=== PATIENT | male | born 1990 | race Two or more races ===

== ENCOUNTER 2024-10-29 09:40 | Inpatient (IN) | payer MEDICAID, OTHER ==
[~2024-10-29] VITALS: Ht 175.3 cm; Wt 107.5 kg
[2024-10-29] MEDS: LORazepam 2MG/ML-1ML VIAL IV ONE (10:08)
[2024-10-29] MEDS: HALOPERIDOL LACTATE 5 MG/ML INJ VIAL IM ONE (10:08)
[2024-10-29] MEDS: diphenhdrAMINE HCL 50 MG/1 ML VL IV ONE (10:08)
[2024-10-29 10:28] LABS: Basophils # (auto) 0.1 10 ^3/uL (0-0.2); Basophils % (auto) 0.8 % (0.0-2.0); Eosinophils # (auto) 0.1 10 ^3/uL (0-0.8); Eosinophils % (auto) 1.3 % (0.0-7.0); Hematocrit 44.7 % (41.0-53.0); Hemoglobin 15.2 g/dL (13.5-17.5); Lymphocytes # (auto) 2.2 10 ^3/uL (0.4-5.4); Lymphocytes % (auto) 26.5 % (10.0-50.0); Mean Corpuscular Hemoglobin 29.5 pg (28.0-32.0); Mean Corpuscular Hgb Conc. 33.9 g/dL (32.0-36.0); Monocytes # (auto) 0.8 10 ^3/uL (0-1.3); Monocytes % (auto) 9.5 % (0.0-12.0); Neutrophils # (auto) 5.2 10 ^3/uL (1.6-8.6); Neutrophils % (auto) 61.9 % (37.0-80.0); Nucleated Red Blood Cells % 0.1 %; Platelet Count (auto) 172 10^3/uL (140-450); Red Blood Cells 5.14 10^6/uL (4.5-5.90); Red Cell Distribution Width 13.5 % (11.8-14.3); White Blood Cell 8.4 10^3/uL (4.4-10.8)
[2024-10-29 10:36] LABS: Chloride 104 mmol/L (98-107); Potassium 3.5 mmol/L (3.5-5.1); Sodium 139 mmol/L (136-145)
[2024-10-29 10:37] LABS: Anion Gap 9 (5-15); Calcium 9.5 mg/dL (8.7-10.4); Carbon Dioxide 26 mmol/L (20-31)
--- NOTE | 2024-10-29 10:41 | ED.PDOC ---
Altered Mental Status HPI Comments 46M BIBA w/ prior Hx of Schizophrenic and Bipolar which all may be associated to the c/c of Altered. EMS report that the nursing home that the pt lives at called 911 who sent a justine who called for an EMS. EMS stated that the pt is not acting normal, erratic behavior, non-violent and is trying to spit to staff. EMS state "Possibly high on something". Denies chills, fever, N/V/D, SOB, CP or other associated symptom's, modifiers, or recent injuries or sick contact at this time. Chief Complaint: ALOC Time Seen by MD: 09:45 Primary Care Provider: UNKNOWN Reviewed Notes: Nurses Notes, Comfort Advisor Notes, Medications, Allergies Allergies: Coded Allergies: NO KNOWN ALLERGIES (Unverified , 10/29/24) Information Source: Emergency Med Personnel Mode of Arrival: EMS Severity: Moderate Timing: Hours Duration: Since onset, Hours Prehospital treatment: Restraints Quality: Change in Behavior Recent: None History of: None Associated Signs and Symptoms: None Past Medical History PAST MEDICAL HISTORY: Schizophrenia Past Medical History (Other): Bipolar Surgical History: Denies all surgeries Family History Family History: Reviewed,noncontributory to illness, Unknown Social History Smoker: Non-Smoker Alcohol: Denies ETOH Use Drugs: Unknown Lives In: Home Unable to Obtain due to: Altered Mental Status All Other Systems: Reviewed and Negative Physical Exam General Appearance: Moderate Distress, Normal HEENT: Normal ENT Inspection, Pharynx Normal, TMs Normal Neck: Full Range of Motion, Non-Tender, Normal, Normal Inspection Respiratory: Chest Non-Tender, Lungs Clear, No Accessory Muscle Use, No Respiratory Distress, Normal Breath Sounds Cardiovascular: No Edema, No JVD, No Murmur, No Gallop, Normal Peripheral Pulses, Regular Rate/Rhythm Breast Exam: Deferred Gastrointestinal: No Organomegaly, Non Tender, No Pulsatile Mass, Normal Bowel Sounds, Soft Genitalia: Deferred Pelvic: Deferred Rectal: Deferred Extremities: No calf tenderness, Normal capillary refill, Normal range of motion, Non-tender, No pedal edema Musculoskeletal : Apperance: Normal Neurologic: Disoriented, No Sensory Deficits, R/L Numbness Cerebellar Function: NOT DONE Reflexes: NOT DONE Skin: Dry, Normal Color, Warm Peripheral Pulses: 3+ Radial (R), 3+ Radial (L) Lymphatic: No Adenopathy Was a procedure done? Was a procedure done?: No Differential Diagnosis (ALOC) Differential Diagnosis: Drug Overdose, ETOH Intoxication X-Ray, Labs, Meds, VS Vital Signs Date Time Temp Pulse Resp B/P (MAP) Pulse Ox O2 Delivery O2 Flow Rate FiO2 10/29/24 09:46 98.9 100 24 137/80 (99) 100 Lab Test 10/29/24 10:18 Range/Units White Blood Count 8.4 4.4-10.8 10^3/uL Red Blood Count 5.14 4.5-5.90 10^6/uL Hemoglobin 15.2 13.5-17.5 g/dL Hematocrit 44.7 41.0-53.0 % Mean Corpuscular Volume 87.0 80.0-100.0 fL Mean Corpuscular Hemoglobin 29.5 28.0-32.0 pg Mean Corpuscular Hemoglobin Concent 33.9 32.0-36.0 g/dL Red Cell Distribution Width 13.5 11.8-14.3 % Platelet Count 172 140-450 10^3/uL Mean Platelet Volume 7.6 6.9-10.8 fL Neutrophils (%) (Auto) 61.9 37.0-80.0 % Lymphocytes (%) (Auto) 26.5 10.0-50.0 % Monocytes (%) (Auto) 9.5 0.0-12.0 % Eosinophils (%) (Auto) 1.3 0.0-7.0 % Basophils (%) (Auto) 0.8 0.0-2.0 % Neutrophils # (Auto) 5.2 1.6-8.6 10 ^3/uL Lymphocytes # (Auto) 2.2 0.4-5.4 10 ^3/uL Monocytes # (Auto) 0.8 0-1.3 10 ^3/uL Eosinophils # (Auto) 0.1 0-0.8 10 ^3/uL Basophils # (Auto) 0.1 0-0.2 10 ^3/uL Nucleated Red Blood Cells 0.1 % Sodium Level 139 136-145 mmol/L Potassium Level 3.5 3.5-5.1 mmol/L Chloride Level 104 98-107 mmol/L Carbon Dioxide Level 26 20-31 mmol/L Anion Gap 9 5-15 Blood Urea Nitrogen 8 L 9-23 mg/dL Creatinine 1.09 0.700-1.30 mg/dL Glomerular Filtration Rate Calc 85 >90 mL/min BUN/Creatinine Ratio 7.3 L 10.0-20.0 Serum Glucose 98 74-106 mg/dL Calcium Level 9.5 8.7-10.4 mg/dL Plasma/Serum Blood Alcohol < 3.0 <10 mg/dL Current Medications Medications (Trade) Dose Ordered Sig/Britt Route Start Time Stop Time Status Last Admin Lorazepam (Ativan Inj) 1 mg ONCE ONCE IV 10/29/24 10:00 10/29/24 10:01 DC 10/29/24 10:08 Haloperidol Lactate (Haldol) 10 mg ONCE ONCE IM 10/29/24 10:00 10/29/24 10:01 DC 10/29/24 10:08 Diphenhydramine HCl (Benadryl Injection) 25 mg ONCE ONCE IV 10/29/24 10:00 10/29/24 10:01 DC 10/29/24 10:08 Patient aggressive. Not able to answer any questions. Possibly had methamphetamine. Vitals stable. Was given Ativan. Was given Haldol. Was given Benadryl. WBC within normal limits. Hemoglobin within normal limits. Continue cardiac monitoring. He is moving all extremities. Time of 1ST Reevaluation: 10:15 Reevaluation 1ST: Unchanged Patient Education/Counseling: Diagnosis, Treatment, Prognosis, Other (Pt is altered) Family Education/Counseling: No Family Present Departure 1 Departure Time of Disposition: 12:01 Impression: Primary Impression: Metabolic encephalopathy Disposition: ADMITTED INPATIENT Admit to: Med Surg Condition: Guarded Critical Care Note Critical Care Time?: No Stability Stability form required: No Heart Score Heart Score: Heart Score Response (Comments) Value History N/A 0 EKG N/A 0 Age N/A 0 Risk Factors N/A 0 Troponin N/A 0 Total 0 I personally scribed for JOHNSON SCHWAB MD ([email or web address]) on 10/29/24 at 10:40. Electronically submitted by Michael Stark ([email or web address]). JOHNSON SCHWAB MD Oct 29, 2024 10:40
[2024-10-29 10:42] LABS: BUN/Creatinine Ratio 7.3 (10.0-20.0); Glucose 98 mg/dL (74-106)
[2024-10-29 10:48] LABS: Blood Alcohol < 3.0 mg/dL (<10); Blood Urea Nitrogen 8 mg/dL (9-23)
--- NOTE | 2024-10-29 18:26 | DVH ---
EXAM: CT HEAD WITHOUT CONTRAST HISTORY: altered COMPARISON: None TECHNIQUE: Axial images were obtained and reformatted in coronal and sagittal planes. All CT scans at this medical facility are performed using dose modulation techniques as appropriate t o a performed exam including the following: Automated exposure control was utilized; adjustment of th e MA and/or KV according to patient size; and use of iterative reconstruction technique. CT Dose: CTDI volume is 66.33 mGy. Dose-length product is 1306.91 mGy*cm FINDINGS: Supratentorial Region: No evidence for large acute territorial ischemia. No intracranial hemorrhage is noted. Posterior Fossa: No acute abnormality. Brainstem: Unremarkable. Sellar/Suprasellar Region: Unremarkable. Ventricles, Cisterns, Sulci: Age-appropriate. Orbits: Unremarkable. Paranasal Sinuses: Unremarkable. Mastoid Air Cells: Unremarkable. Vasculature: Unremarkable. Bones/Soft Tissues: No acute abnormality. Other: None. IMPRESSION: 1. No acute intracranial process.
[2024-10-29 19:57] LABS: Urine Bacteria None Seen /hpf (None Seen)
[2024-10-29 20:09] LABS: Urine Blood Negative /uL (Negative); Urine Clarity Clear (Clear); Urine Color Light-Yellow (Yellow); Urine Protein, UAD Negative (Negative); Urine Specific Gravity 1.011 (1.001-1.035); Urine Squamous Epithelial Cell None Seen /hpf (<5); Urine Urobilinogen Normal (Negative); Urine WBC 1 /HPF (0-3); Urine pH 5.5 (5.0-9.0)
[2024-10-29 20:17] LABS: Benzodiazephine Screen, Urine Neg (NEGATIVE)
[2024-10-29 20:52] LABS: Amphetamine Screen, Urine Pos (NEGATIVE); Barbiturate Scree,Urine Neg (NEGATIVE); Cannabinoid Screen, Urine Neg (NEGATIVE); Cocaine Screen, Urine Neg (NEGATIVE); Opiate Scree,Urine Neg (NEGATIVE); Phencyclidine Screen, Urine Neg (NEGATIVE)
[2024-10-29] MEDS ORDERED: LORazepam 2MG/ML-1ML VIAL IV PRN (21:00)
[2024-10-29] MEDS: SODIUM CHLORIDE 0.9% 1,000 ML IV ONE (21:20)
[2024-10-29 22:30] VITALS: BP 115/76; PULSE 64; RESP 17; TEMP 97.3; O2SAT 98
[2024-10-29 23:47] VITALS: RESP 16
[2024-10-29 23:53] VITALS: BP 105/70; PULSE 68; RESP 16; TEMP 97.3; O2SAT 93
[2024-10-30] VITALS (8 sets, daily range): BP systolic 85–112; BP diastolic 51–87; PULSE 63–98; RESP 16–18; TEMP 97.4–98.1; O2SAT 18–100
--- NOTE | 2024-10-30 02:44 | DVHHPRES ---
History of Present Illness Resident Creating Document: [facility] RESIDENT Reason for Visit: AMS History of Present Illness A 46-year-old male with a past medical history of schizophrenia and bipolar disorder, presenting with altered behavior. The patient was brought in by EMS from his long-term after staff called 911. EMS reported that the patient was not acting normally, exhibiting erratic but non-violent behavior and attempting to spit. EMS suspected he might be intoxicated or under the influence of a substance. The patient denies chills, fever, nausea, vomiting, diarrhea, shortness of breath, or chest pain. No reported recent injuries or sick contacts. Psych: Bipolar, Schizophrenia Drugs: Other (meth) Review of Systems Constitutional: No: Fever, Chills, Sweats, Weakness, Malaise, Other Eyes: No: Pain, Vision change, Conjunctivae inflammation, Eyelid inflammation, Other, Redness ENT: No: Ear pain, Ear discharge, Nose pain, Nose discharge, Nose congestion, Mouth pain, Mouth swelling, Throat pain, Throat swelling, Other Respiratory: No: Cough, Dry, Shortness of breath, SOB with excertion, Wheezing, Hemoptysis, Pleuritic Pain, Sputum, Wheezing, Other Cardiovascular: No: Chest Pain, Palpitations, Orthopnea, Paroxysmal Noc. Dyspnea, Edema, Lt Headedness, Other Gastrointestinal: No: Nausea, Vomiting, Abdominal Pain, Diarrhea, Constipation, Melena, Hematochezia, Other Genitourinary: No Dysuria, No Frequency, No Incontinence, No Hematuria, No Retention, No Other Musculoskeletal: No: other, neck pain, shoulder pain, arm pain, back pain, hand pain, leg pain, foot pain Skin: No: Rash, Lesions, Jaundice, Bruising, Other Neurological: No: Weakness, Numbness, Incoordination, Change in speech, Confusion, Seizures, Other Allergies: Coded Allergies: NO KNOWN ALLERGIES (Unverified , 10/29/24) Medications Current Medications Medications Dose Ordered Sig/Britt Route Start Time Stop Time Status Last Admin Dose Admin Lorazepam 1 mg PRN PRN IV 10/29/24 21:00 Exam Vital Signs Vital Signs Date Time Temp Pulse Resp B/P (MAP) Pulse Ox O2 Delivery O2 Flow Rate FiO2 10/30/24 01:00 98.1 98 17 112/73 (86) 98 98.1 2/16/25 23:47 Room Air* 0 21 General Appearance: Other (drowsy, non combative ) HEENT: Atraumatic, PERRLA, EOMI, Mucous membr. moist/pink Respiratory: Clear to auscultation Cardiovascular: Regular rate, Normal S1, Normal S2 Abdominal: Normal bowel sounds, Soft Extremities: No clubbing, No cyanosis Skin: No rashes, No breakdown Neuro: Normal gait, Strength at 5/5 X4 ext Labs/Xrays Labs Test 10/29/24 19:52 10/29/24 10:18 Range/Units Urine Color Light-yellow Yellow Urine Clarity Clear Clear Urine pH 5.5 5.0-9.0 Urine Specific [place] 1.011 1.001-1.035 Urine Protein Negative Negative Urine Ketones 1+ H Negative Urine Blood Negative Negative /uL Urine Nitrite Negative Negative Urine Bilirubin Negative Negative Urine Urobilinogen Normal Negative mg/dL Urine Leukocyte Esterase Negative Negative /uL Urine RBC 1 0 - 3 /hpf Urine Microscopic WBC 1 0-3 /HPF Urine Squamous Epithelial Cells None seen <5 /hpf Urine Bacteria None seen None Seen /hpf Urine Glucose Normal Normal mg/dL Urine Opiates Screen Neg NEGATIVE Urine Fentanyl Screen Neg NEGATIVE Urine Barbiturates Screen Neg NEGATIVE Urine Phencyclidine Screen Neg NEGATIVE Urine Amphetamines Screen Pos NEGATIVE Urine Benzodiazepines Screen Neg NEGATIVE Urine Cocaine Screen Neg NEGATIVE Urine Cannabinoids Screen Neg NEGATIVE White Blood Count 8.4 4.4-10.8 10^3/uL Red Blood Count 5.14 4.5-5.90 10^6/uL Hemoglobin 15.2 13.5-17.5 g/dL Hematocrit 44.7 41.0-53.0 % Mean Corpuscular Volume 87.0 80.0-100.0 fL Mean Corpuscular Hemoglobin 29.5 28.0-32.0 pg Mean Corpuscular Hemoglobin Concent 33.9 32.0-36.0 g/dL Red Cell Distribution Width 13.5 11.8-14.3 % Platelet Count 172 140-450 10^3/uL Mean Platelet Volume 7.6 6.9-10.8 fL Neutrophils (%) (Auto) 61.9 37.0-80.0 % Lymphocytes (%) (Auto) 26.5 10.0-50.0 % Monocytes (%) (Auto) 9.5 0.0-12.0 % Eosinophils (%) (Auto) 1.3 0.0-7.0 % Basophils (%) (Auto) 0.8 0.0-2.0 % Neutrophils # (Auto) 5.2 1.6-8.6 10 ^3/uL Lymphocytes # (Auto) 2.2 0.4-5.4 10 ^3/uL Monocytes # (Auto) 0.8 0-1.3 10 ^3/uL Eosinophils # (Auto) 0.1 0-0.8 10 ^3/uL Basophils # (Auto) 0.1 0-0.2 10 ^3/uL Nucleated Red Blood Cells 0.1 % Sodium Level 139 136-145 mmol/L Potassium Level 3.5 3.5-5.1 mmol/L Chloride Level 104 98-107 mmol/L Carbon Dioxide Level 26 20-31 mmol/L Anion Gap 9 5-15 Blood Urea Nitrogen 8 L 9-23 mg/dL Creatinine 1.09 0.700-1.30 mg/dL Glomerular Filtration Rate Calc 85 >90 mL/min BUN/Creatinine Ratio 7.3 L 10.0-20.0 Serum Glucose 98 74-106 mg/dL Calcium Level 9.5 8.7-10.4 mg/dL Plasma/Serum Blood Alcohol < 3.0 <10 mg/dL Assessment/Plan Assessment/Plan 46-year-old male with schizophrenia and bipolar disorder presenting with altered mental status. Likely contributing factors include meth use, with no signs of acute infection or metabolic derangement. Normal head CT scan #Acute metabolic encephalopathy due to meth abuse #Schizophrenia #Bipolar syndrome Admit Med/surg Regular diet IV fluids Lorazepam PRN Labs am Case discussed with Dr Jack Time spent on care 23 min Plan discussed with: Patient, Other (rn) My Orders Orders - [facility] RESIDENT Procedure Category Date Status Time Admit ADMIT 10/29/24 Transmitted 20:57 Lorazepam 2mg/Ml Inj PHA 10/29/24 In Process (Ativan Inj) 21:00 Sodium Chloride 0.9% PHA 10/29/24 In Process 21:00 Complete Blood Count LAB 10/30/24 Logged 04:00 Hemoglobin A1c LAB 10/30/24 Logged 04:00 Lipid Panel LAB 10/30/24 Logged 04:00 Magnesium LAB 10/30/24 Logged 04:00 Phosphorus LAB 10/30/24 Logged 04:00 Thyroid Stimulating LAB 10/30/24 Logged Hormone 04:00 Vitamin B12 LAB 10/30/24 Logged 04:00 Vitamin D, 25-Hydroxy LAB 10/30/24 Logged 04:00 Comprehensive LAB 10/30/24 Logged Metabolic Panel 04:00 Date of Service: Oct 29, 2024 Billing Provider: ARNAUD JACK MD Common Visit Codes: [id number] INP/OBS CARE (HIGH) XI [facility] RESIDENT Oct 30, 2024 02:44 ARNAUD JACK MD Oct 30, 2024 14:13
[2024-10-30 06:51] LABS: Basophils # (auto) 0 10 ^3/uL (0-0.2); Basophils % (auto) 0.5 % (0.0-2.0); Eosinophils # (auto) 0.1 10 ^3/uL (0-0.8); Eosinophils % (auto) 1.4 % (0.0-7.0); Hematocrit 43.3 % (41.0-53.0); Hemoglobin 14.8 g/dL (13.5-17.5); Lymphocytes # (auto) 1.9 10 ^3/uL (0.4-5.4); Lymphocytes % (auto) 27.8 % (10.0-50.0); Mean Corpuscular Hemoglobin 29.8 pg (28.0-32.0); Mean Corpuscular Hgb Conc. 34.1 g/dL (32.0-36.0); Mean Corpuscular Volume 87.4 fL (80.0-100.0); Monocytes # (auto) 0.6 10 ^3/uL (0-1.3); Monocytes % (auto) 8.2 % (0.0-12.0); Neutrophils # (auto) 4.2 10 ^3/uL (1.6-8.6); Neutrophils % (auto) 62.1 % (37.0-80.0); Nucleated Red Blood Cells % 0.2 %; Platelet Count (auto) 159 10^3/uL (140-450); Red Blood Cells 4.95 10^6/uL (4.5-5.90); Red Cell Distribution Width 13.5 % (11.8-14.3); White Blood Cell 6.8 10^3/uL (4.4-10.8)
[2024-10-30 07:14] LABS: Alanine Aminotransferase 36 U/L (7-40); Albumin 4.3 g/dL (3.2-4.8); Alkaline Phosphatase 90 U/L (46-116); Anion Gap 9 (5-15); Aspartate Aminotransferase 32 U/L (13-40); BUN/Creatinine Ratio 12.6 (10.0-20.0); Bilirubin, Total 0.5 mg/dL (0.2-1.0); Blood Urea Nitrogen 12 mg/dL (9-23); Calcium 9.4 mg/dL (8.7-10.4); Carbon Dioxide 23 mmol/L (20-31); Chloride 106 mmol/L (98-107); Glucose 99 mg/dL (74-106); Magnesium 2.2 mg/dL (1.6-2.6); Phosphorus 3.7 mg/dL (2.4-5.1); Potassium 3.6 mmol/L (3.5-5.1); Sodium 138 mmol/L (136-145)
[2024-10-30 07:15] LABS: Total Protein 6.5 g/dL (5.7-8.2)
[2024-10-30 07:30] LABS: Triglycerides 88 mg/dL (< 150)
[2024-10-30 07:32] LABS: LDL Cholesterol 79 mg/dL (< 100)
[2024-10-30 07:33] LABS: Cholesterol 127 mg/dL (< 200)
[2024-10-30 07:43] LABS: HDL Cholesterol 37 mg/dL (40-59)
[2024-10-30] MEDS ORDERED: LORazepam 2MG/ML-1ML VIAL IV PRN (10:45)
[2024-10-30] MEDS: SODIUM CHLORIDE 0.9% 500 ML IV ONE (12:53)
[2024-10-31 04:45] VITALS: BP 99/42; PULSE 69; RESP 17; TEMP 97.6; O2SAT 98
--- NOTE | 2024-10-31 07:20 | DVH ---
EXAM: XR Chest, 1 View CLINICAL INDICATION: rule out aspiration pneumonia TECHNIQUE: Frontal view of the chest. COMPARISON: None FINDINGS: LUNGS AND PLEURAL SPACES: Unremarkable. No consolidation. No pneumothorax. HEART: Unremarkable. No cardiomegaly. MEDIASTINUM: Unremarkable. Normal mediastinal contour. BONES/JOINTS: Unremarkable. No acute fracture. OTHER FINDINGS: . None. . IMPRESSION: No acute cardiopulmonary process.
[2024-10-31 09:00] VITALS: BP 90/44; PULSE 57; RESP 18; TEMP 97.4; O2SAT 94
--- NOTE | 2024-10-31 10:29 | DVHPN2 ---
Eyes: No Pain, No Vision change, No Conjunctivae inflammation, No Eyelid inflammation, No Other, No Redness ENT: No Ear pain, No Ear discharge, No Nose pain, No Nose discharge, No Nose congestion, No Mouth pain, No Mouth swelling, No Throat pain, No Throat swelling, No Other Cardiovascular: No Chest Pain, No Palpitations, No Orthopnea, No Paroxysmal Noc. Dyspnea, No Edema, No Lt Headedness, No Other Respiratory: No Cough, No Dry, No Shortness of breath, No SOB with excertion, No Wheezing, No Hemoptysis, No Pleuritic Pain, No Sputum, No Other Gastrointestinal: No Nausea, No Vomiting, No Abdominal Pain, No Diarrhea, No Constipation, No Melena, No Hematochezia, No Other Genitourinary: No Dysuria, No Frequency, No Incontinence, No Hematuria, No Retention, No Other Musculoskeletal: No other, No neck pain, No shoulder pain, No arm pain, No back pain, No hand pain, No leg pain, No foot pain Skin: No Rash, No Lesions, No Jaundice, No Bruising, No Other Objective Vitals Vital Signs Date Time Temp Pulse Resp B/P (MAP) Pulse Ox O2 Delivery O2 Flow Rate FiO2 10/31/24 08:00 Room Air* 0 21 10/31/24 04:45 97.6 69 17 99/42 (61) 98 97.6 Intake/Output Intake and Output 10/31/24 07:00 Intake Total 610 ml Balance 610 ml Intake Oral 610 ml # Voids 8 # Bowel Movements 1 Medications Current Medications Medications Dose Ordered Sig/Britt Route Start Time Stop Time Status Last Admin Dose Admin Lorazepam 1 mg Q4HPRN PRN IV 10/30/24 10:45 Laboratory Results Laboratory Tests 10/30/24 06:18 Urinalysis Test 10/29/24 19:52 Urine Color Light-yellow (Yellow) Urine Clarity Clear (Clear) Urine pH 5.5 (5.0-9.0) Urine Specific [place] 1.011 (1.001-1.035) Urine Protein Negative (Negative) Urine Ketones 1+ (Negative) H Urine Blood Negative /uL (Negative) Urine Nitrite Negative (Negative) Urine Bilirubin Negative (Negative) Urine Urobilinogen Normal mg/dL (Negative) Urine Leukocyte Esterase Negative /uL (Negative) Urine RBC 1 /hpf (0 - 3) Urine Microscopic WBC 1 /HPF (0-3) Urine Squamous Epithelial Cells None seen /hpf (<5) Urine Bacteria None seen /hpf (None Seen) Urine Glucose Normal mg/dL (Normal) Assessment/Plan My Orders Orders - SHIREEN NDIAYE MD Procedure Category Date Status Time Lorazepam 2mg/Ml Inj PHA 10/30/24 In Process (Ativan Inj) 10:45 SHIREEN NDIAYE MD Oct 31, 2024 10:29
--- NOTE | 2024-10-31 11:46 | DVHDS2 ---
Discharge Summary Date of Admission Oct 29, 2024 at 20:57 Date of Discharge: Oct 31, 2024 Admitting Diagnosis #Acute metabolic encephalopathy due to meth abuse #Schizophrenia #Bipolar syndrome Labs/Diagnostic Data: Laboratory Results Test 10/30/24 06:18 10/29/24 19:52 10/29/24 10:18 White Blood Count 6.8 10^3/uL (4.4-10.8) Red Blood Count 4.95 10^6/uL (4.5-5.90) Hemoglobin 14.8 g/dL (13.5-17.5) Hematocrit 43.3 % (41.0-53.0) Mean Corpuscular Volume 87.4 fL (80.0-100.0) Mean Corpuscular Hemoglobin 29.8 pg (28.0-32.0) Mean Corpuscular Hemoglobin Concent 34.1 g/dL (32.0-36.0) Red Cell Distribution Width 13.5 % (11.8-14.3) Platelet Count 159 10^3/uL (140-450) Mean Platelet Volume 8.0 fL (6.9-10.8) Neutrophils (%) (Auto) 62.1 % (37.0-80.0) Lymphocytes (%) (Auto) 27.8 % (10.0-50.0) Monocytes (%) (Auto) 8.2 % (0.0-12.0) Eosinophils (%) (Auto) 1.4 % (0.0-7.0) Basophils (%) (Auto) 0.5 % (0.0-2.0) Neutrophils # (Auto) 4.2 10 ^3/uL (1.6-8.6) Lymphocytes # (Auto) 1.9 10 ^3/uL (0.4-5.4) Monocytes # (Auto) 0.6 10 ^3/uL (0-1.3) Eosinophils # (Auto) 0.1 10 ^3/uL (0-0.8) Basophils # (Auto) 0 10 ^3/uL (0-0.2) Nucleated Red Blood Cells 0.2 % Sodium Level 138 mmol/L (136-145) Potassium Level 3.6 mmol/L (3.5-5.1) Chloride Level 106 mmol/L (98-107) Carbon Dioxide Level 23 mmol/L (20-31) Anion Gap 9 (5-15) Blood Urea Nitrogen 12 mg/dL (9-23) Creatinine 0.95 mg/dL (0.700-1.30) Glomerular Filtration Rate Calc 100 mL/min (>90) BUN/Creatinine Ratio 12.6 (10.0-20.0) Serum Glucose 99 mg/dL (74-106) Hemoglobin A1c 5.4 % A1C (<5.7) Calcium Level 9.4 mg/dL (8.7-10.4) Phosphorus Level 3.7 mg/dL (2.4-5.1) Magnesium Level 2.2 mg/dL (1.6-2.6) Total Bilirubin 0.5 mg/dL (0.2-1.0) Aspartate Amino Transferase (AST) 32 U/L (13-40) Alanine Aminotransferase (ALT) 36 U/L (7-40) Alkaline Phosphatase 90 U/L (46-116) Total Protein 6.5 g/dL (5.7-8.2) Albumin 4.3 g/dL (3.2-4.8) Triglycerides Level 88 mg/dL (< 150) Cholesterol Level 127 mg/dL (< 200) LDL Cholesterol 79 mg/dL (< 100) HDL Cholesterol 37 mg/dL (40-59) Vitamin B12 Level 576 pg/mL (211-911) Vitamin D 25-Hydroxy 21.7 ng/mL (30.0-100) Thyroid Stimulating Hormone (TSH) 0.27 uIU/mL (0.55-4.78) Urine Color Light-yellow (Yellow) Urine Clarity Clear (Clear) Urine pH 5.5 (5.0-9.0) Urine Specific [place] 1.011 (1.001-1.035) Urine Protein Negative (Negative) Urine Ketones 1+ (Negative) Urine Blood Negative /uL (Negative) Urine Nitrite Negative (Negative) Urine Bilirubin Negative (Negative) Urine Urobilinogen Normal mg/dL (Negative) Urine Leukocyte Esterase Negative /uL (Negative) Urine RBC 1 /hpf (0 - 3) Urine Microscopic WBC 1 /HPF (0-3) Urine Squamous Epithelial Cells None seen /hpf (<5) Urine Bacteria None seen /hpf (None Seen) Urine Glucose Normal mg/dL (Normal) Urine Opiates Screen Neg (NEGATIVE) Urine Fentanyl Screen Neg (NEGATIVE) Urine Barbiturates Screen Neg (NEGATIVE) Urine Phencyclidine Screen Neg (NEGATIVE) Urine Amphetamines Screen Pos (NEGATIVE) Urine Benzodiazepines Screen Neg (NEGATIVE) Urine Cocaine Screen Neg (NEGATIVE) Urine Cannabinoids Screen Neg (NEGATIVE) Plasma/Serum Blood Alcohol < 3.0 mg/dL (<10) Other Laboratory Tests 10/30/24 06:18 Brief Hx & Hospital Course: This is a 34 years old male with past medical history of of schizophrenia and bipolar disorder came into emergency department because of altered mental status. According to his fpc the patient was brought in after a staff called 911 report that the patient is not acting normally. He exhibiting erratic but non violent behavior and attempts to spit as staff. EMS suspect the patient may be intoxicated or under the influence of a substance abuse. The patient admitted that he used methamphetamine that night. The patient was admitted. IV fluid was given. Ativan was given. Today the patient is alert, awake. He oriented x3. He will be discharged home. Advised him not using meth. Advised him to follow up with primary care physician 1-2 weeks. Activity as tolerated. Diet per home diet. Physical exam: HEENT: Normocephalic atraumatic pupils equal react to light and accommodation. Extraocular muscles intact, conjunctiva pink, oropharynx moist, no thrush, no exudate. Lymphatic: No lymphadenopathy Cardiovascular exam: S1, S2 was heard. No murmurs, rubs, gallops Lung: Clear on auscultation bilaterally, no wheeze, rale, rhonchi. GI: Abdominal soft, nondistended, nontenderness, positive bowel sounds. Extremity: No crepitus, cyanosis, edema. Pedal pulses present bilateral. Full range of motion. Skin: Normal turgor, no rash. Psych: Alert, oriented x3. Neurology: No focal deficits, cranial nerve II to XII grossly intact. This medical document was created using an electronic medical record system with [employer] direct computerized dictation system. Although this document has been carefully reviewed, there may still be some phonetic and typographical errors. These areas are purely typographical due to imperfections of the software programs, and do not reflect any compromise in the patient's medical care. Condition at Discharge: Stable Final Diagnosis/Problems List #Acute metabolic encephalopathy due to meth abuse #Schizophrenia #Bipolar syndrome Discharge Disposition: Home Discharge Instruct/Medications Diet: Regular Activity: No Restrictions, As Tolerated Follow Up/Referral: pcp 1-2 weeks Medications: none Discharge Statement: "Patient was advised to return to the ER or call 911 if any headaches, dizziness, shortness of breath, chest pain, abdominal pain, bleeding, fevers, or worsening of medical condition. Patient was counseled about treatment plan, medications, possible side effects, patientverbalized understanding. All questions were answered to the best of my ability. This discharge took greater then 30 minutes in planning, reviewing documentation, counseling the patient, and discussing with other team members." ASSESSMENT ASSESSMENT Assessment ams due to methamphetamine Date of Service: Oct 31, 2024 Billing Provider: SHIREEN NDIAYE MD Common Visit Codes: 17435-HYL/OBS DISCH DAY >30min SHIREEN NDIAYE MD Oct 31, 2024 11:46
[2024-10-31 13:00] VITALS: BP 100/66; PULSE 81; RESP 18; TEMP 97.7; O2SAT 96
--- NOTE | 2024-11-02 20:35 | DVHPN2 ---
Subjective The patient is seen and examined at bedside. Still look groggy and tired. Reviewed: Care Plan, H&P, Labs, Medications, Previous Orders Changes from previous H/P or p: No Changes Eyes: No Pain, No Vision change, No Conjunctivae inflammation, No Eyelid inflammation, No Other, No Redness ENT: No Ear pain, No Ear discharge, No Nose pain, No Nose discharge, No Nose congestion, No Mouth pain, No Mouth swelling, No Throat pain, No Throat swelling, No Other Cardiovascular: No Chest Pain, No Palpitations, No Orthopnea, No Paroxysmal Noc. Dyspnea, No Edema, No Lt Headedness, No Other Respiratory: No Cough, No Dry, No Shortness of breath, No SOB with excertion, No Wheezing, No Hemoptysis, No Pleuritic Pain, No Sputum, No Other Gastrointestinal: No Nausea, No Vomiting, No Abdominal Pain, No Diarrhea, No Constipation, No Melena, No Hematochezia, No Other Genitourinary: No Dysuria, No Frequency, No Incontinence, No Hematuria, No Retention, No Other Musculoskeletal: No other, No neck pain, No shoulder pain, No arm pain, No back pain, No hand pain, No leg pain, No foot pain Skin: No Rash, No Lesions, No Jaundice, No Bruising, No Other Objective Vitals Vital Signs Date Time Temp Pulse Resp B/P (MAP) Pulse Ox O2 Delivery O2 Flow Rate FiO2 10/30/24 13:00 97.7 81 18 100/66 (77) 96 97.7 10/30/24 08:00 Room Air* 0 21 General Appearance: Alert, Cooperative, No acute distress HEENT: Atraumatic, PERRLA, EOMI, Mucous membr. moist/pink Neck: Supple Lungs: Clear to auscultation, Normal air movement Cardiovascular: Regular rate, Normal S1, Normal S2, No murmurs, Gallops, Rubs Abdomen: Normal bowel sounds, Soft, No tenderness Neuro: Cranial nerves 3-12 NL Psych/Mental Status: Mental status NL Laboratory Results Laboratory Tests 10/30/24 06:18 Urinalysis Test 10/29/24 19:52 Urine Color Light-yellow (Yellow) Urine Clarity Clear (Clear) Urine pH 5.5 (5.0-9.0) Urine Specific [place] 1.011 (1.001-1.035) Urine Protein Negative (Negative) Urine Ketones 1+ (Negative) H Urine Blood Negative /uL (Negative) Urine Nitrite Negative (Negative) Urine Bilirubin Negative (Negative) Urine Urobilinogen Normal mg/dL (Negative) Urine Leukocyte Esterase Negative /uL (Negative) Urine RBC 1 /hpf (0 - 3) Urine Microscopic WBC 1 /HPF (0-3) Urine Squamous Epithelial Cells None seen /hpf (<5) Urine Bacteria None seen /hpf (None Seen) Urine Glucose Normal mg/dL (Normal) Labs and/or images reviewed: Labs reviewed by me Assessment/Plan Assessment/Plan #Acute metabolic encephalopathy due to meth abuse #Schizophrenia #Bipolar syndrome Continue current management. Continue with IV fluid. Advised the patient to stop using drugs. Counseled patient more than 15 minute regarding to methamphetamine and the affect to his body such as congestive heart failure and even . This medical document was created using an electronic medical record system with [employer] computerized dictation system. Although this document has been carefully reviewed, there may still be some phonetic and typographical errors. These areas are purely typographical due to imperfections of the software programs, and do not reflect any compromise in the patient's medical care. Plan discussed with: Patient Date of Service: Oct 30, 2024 Billing Provider: SHIREEN NDIAYE MD Common Visit Codes: [id number] INP/OBS CARE(HIGH) SHIREEN NDIAYE MD Nov 02, 2024 20:35
== END 2024-10-31 16:00 | disposition home or self-care (01) | DRG 812 ==
LOC: ER 09:40 → OVERFLOW 20:57 → EDBD 20:57 → EAST 22:30 → CENTRAL 10-30 01:40
PROVIDERS: ADMIT Internal Medicine; ATTEND Internal Medicine
DX: T43.651A Poisoning by methamphetamines accidental (unintentional), initial encounter (principal); G92.8 Other toxic encephalopathy; F31.9 Bipolar disorder, unspecified; F20.9 Schizophrenia, unspecified; Y92.89 Other specified places as the place of occurrence of the external cause
CPT/HCPCS: 36415; 70450; 71045; 80048; 80053; 80061; 80307; 80320; 81001; 82306; 82607; 83036; 83735; 84100; 84443; 85025; G0378